=== PATIENT | female | born 1950 | race Hispanic/Latino ===

== ENCOUNTER 2018-05-02 22:43 | Emergency (ER) | payer MEDICARE, MEDICAID ==
[2018-05-02 22:52] VITALS: TEMP 98.2
--- NOTE | 2018-05-03 00:24 | ED PDOC ---
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 As per patient, was trying to drive to a wedding, and her GPS system malfunctioned while crossing over a bridge, and due to being in an unfamiliar area, she became very anxious. Reports sudden onset of dizziness, palpitations, and shortness of breath, so she pulled over. Adamantly denies chest pain. No syncope, near syncope, fevers , chills, diaphoresis, nausea, emesis, dysuria, hematuria. Since arriving in ED , symptoms have resolved. Seen ambulating well in ED, including when briefly leaving ED to get a blanket from her car and returning (originally thought to have eloped). Denies any other acute complaints, not actively short of breath or having palpitations, no chest pain. All other ROS in 12-system review negative. PMH: as above PSH: unsure about prior surgeries as patient anxious about topic of surgery when asked and said she doesn't want any surgeries Fam Hx: denies Soc Hx: denies tobacco, alcohol, illicits PMD: pt unable to remember PMD's name, work's at a "[employer]" in [place] (Chris Sykes) Past Medical History - Provider Review Nursing Documentation Reviewed: Yes - Psychiatric Hx Substance Use: No <Chris Sykes - Last Filed: 05/03/18 04:10> Family/Social History - Physician Review Nursing Documentation Reviewed: Yes Family/Social History: Unknown Family HX Smoking Status: Never Smoked Hx Alcohol Use: No Hx Substance Use: No <Chris Sykes - Last Filed: 05/03/18 04:10> Allergies/Home Meds <Dragan Carlisle - Last Filed: 05/03/18 01:49> <Chris Sykes - Last Filed: 05/03/18 04:10> Allergies/Adverse Reactions: Allergies Penicillins Allergy (Verified 05/02/18 22:52) RASH Home Medications: Home Meds Medication Instructions Recorded Confirmed Unobtainable 05/02/18 05/02/18 Review of Systems - Review of Systems Constitutional: Normal. absent: Fatigue, Fevers Eyes: Normal. absent: Vision Changes ENT: Normal. absent: Sore Throat, Rhinorrhea, Epistaxis Respiratory: SOB (now resolved). absent: Normal, Cough, Wheezing Cardiovascular: Palpitations. absent: Chest Pain, Syncope Gastrointestinal: Normal. absent: Abdominal Pain, Nausea, Vomiting Genitourinary Female: Normal. absent: Dysuria Neurological: Dizziness (now resolved). absent: Headache, Focal Weakness, Gait Changes (ambulated from parking to ED without issue and to and back from car without issue) Endocrine: absent: Diaphoresis Psychiatric: Anxiety (became acutely anxious when GPS malfunctioned in area she wasn't familiar with) <MonyChris - Last Filed: 05/03/18 04:10> Physical Exam <Dragan Carlisle - Last Filed: 05/03/18 01:49> Vital Signs Reviewed: Yes Temperature: Afebrile Blood Pressure: Normal Pulse: Regular Respiratory Rate: Normal Appearance: Positive for: Well-Appearing, Non-Toxic, Comfortable. No: Ill- Appearing Pain Distress: None Mental Status: Positive for: Alert and Oriented X 3 - Systems Exam Head: Present: Atraumatic, Normocephalic Pupils: No: Pinpoint Extroacular Muscles: Present: EOMI Conjunctiva: No: Injected, Icteric Mouth: Present: Moist Mucous Membranes, Normal Lips, Normal Tounge, Normal Teeth. No: Dry, Drooling Nose (External): Present: Atraumatic. No: Abrasion, Laceration Nose (Internal): Present: No Active Bleeding. No: Epistaxis Neck: Present: Normal Range of Motion, Trachea Midline, Other (posterior neck tenderness and tightness along bilateral trapezius muscle groups, pt reports present since 1 week prior 2/2 mechanical fall caught by passnegers on her train ). No: MIDLINE TENDERNESS, JVD Respiratory/Chest: Present: Clear to Auscultation, Good Air Exchange. No: Respiratory Distress, Accessory Muscle Use, Wheezes, Decreased Breath Sounds, Rales, Rhonchi, Tachypneic, Tender to Palpation Cardiovascular: Present: Regular Rate and Rhythm, Normal S1, S2, Peripheal Pulses Present (+2 radials and dorsalis pedis bilaterally). No: Murmurs, Irregular Rhythm, Tachycardic, Bradycardic Abdomen: Present: Normal Bowel Sounds. No: Tenderness, Distention, Guarding Upper Extremity: Present: Normal Inspection, Normal ROM, NORMAL PULSES. No: Cyanosis, Edema, Tenderness, Swelling, Erythema, Deformity Lower Extremity: Present: Normal Inspection, NORMAL PULSES, Normal ROM, Other ( moderate scattered varicose veins but none acutely tender to palpation). No: Edema, CALF TENDERNESS, Cyanosis, Tenderness, Swelling, Erythema, Deformity Neurological: Present: GCS=15, Speech Normal, Motor Func Grossly Intact, Normal Sensory Function, Gait Normal (ambulating in ED without issue) Skin: Present: Warm, Dry, Normal Color. No: Rashes, Diaphoretic, Pale Lymphatic: No: Cervical Adenopathy Psychiatric: Present: Alert, Oriented x 3, Normal Insight, Normal Concentration , Anxious <Chris Sykes - Last Filed: 05/03/18 04:10> Vital Signs Temp Pulse Resp Pulse Ox 05/02/18 22:49 98.2 F 73 19 97 Medical Decision Making <Dragan Carlisle - Last Filed: 05/03/18 01:49> Reassessment Condition: Re-examined (Symptoms had already resolved on arrival, no change on re-examination, symptoms remain resolved and no recurrence reported ) <Chris Sykes - Last Filed: 05/03/18 04:10> ED Course and Treatment: 05/03/18 01:48 67 year old female presents to the Emergency department complaining of heart palpitations. In agreement with resident note, which includes further HPI details. Patient was seen and evaluated with resident, came up with plan and treatment together. (Dragan Carlisle) 05/03/18 00:20 Ddx: Panic attack vs arrhythmia, r/o ACS As per ED staff, refusing labs. When asking patient why, she stated she just had labs 1 week ago. Explained need for new labs given acute event prompting her to present to ED, then allowed ED to draw blood CBC, CMP, Mg, Phos, Trop, and EKG ordered, f/u 05/03/18 04:03 Labs unremarkable, trop negative, NSR on EKG with normal intervals and segments , no ST elevations or depression appreciated Pt seen ambulating in ED, initially believed to have eloped, but then returned reporting that she only went to her car for a blanket because she was cold. Given ambulatory status without symptoms and unremarkable workup, will discharge to home. Patient to follow up with her PMD in 2-3 days. Expresses understanding and agreement with these instructions. Discharged to home. Patient seen, reviewed, and discussed with attending, [facility]isle. [facility] - Lab Interpretations Lab Results: 05/03/18 01:30 05/03/18 01:30 Lab Results 05/03/18 01:30: Sodium 141, Potassium 3.9, Chloride 106, Carbon Dioxide 22, Anion Gap 16, BUN 19, Creatinine 1.0, Est GFR ( Amer) > 60, Est GFR (Non- Af Amer) 55, Random Glucose 95, Calcium 8.9, Phosphorus 3.7, Magnesium 2.1, Total Bilirubin 0.4, AST 20, ALT 25, Alkaline Phosphatase 75, Troponin I < 0.01 , Total Protein 7.2, Albumin 4.0, Globulin 3.2, Albumin/Globulin Ratio 1.2 05/03/18 01:30: WBC 5.0, RBC 4.01, Hgb 12.2, Hct 34.7 L, MCV 86.5, MCH 30.4, MCHC 35.2, RDW 13.7, Plt Count 150, MPV 10.0, Gran % 46.0 L, Lymph % (Auto) 44.0 H, Ashe % (Auto) 7.6 H, Eos % (Auto) 2.0, Baso % (Auto) 0.4, Gran # 2.30, Lymph # (Auto) 2.2, Ashe # (Auto) 0.4, Eos # (Auto) 0.1, Baso # (Auto) 0.02 - PA / COUNTY AGENT / Resident Statement / has reviewed & agrees with the documentation as recorded. / has examined the patient and agrees with the treatment plan. - Scribe Statement The provider has reviewed the documentation as recorded by the Scribe <Dragan Carlisle - Last Filed: 05/03/18 01:49> <Chris Sykes - Last Filed: 05/03/18 04:10> - Scribe Statement Padminiingrid Sherlyn. All medical record entries made by the Scribe were at my direction and personally dictated by me. I have reviewed the chart and agree that the record accurately reflects my personal performance of the history, physical exam, medical decision making, and the department course for this patient. I have also personally directed, reviewed, and agree with the discharge instructions and disposition. (Dragan Carlisle) Disposition/Present on Arrival <Dragan Carlisle - Last Filed: 05/03/18 01:49> - Present on Arrival Any Indicators Present on Arrival: No History of DVT/PE: No History of Uncontrolled Diabetes: No Urinary Catheter: No History of Decub. Ulcer: No History Surgical Site Infection Following: None - Disposition Have Diagnosis and Disposition been Completed?: Yes Disposition Time: 04:10 Patient Plan: Discharge <Chris Sykes - Last Filed: 05/03/18 04:10> - Disposition Diagnosis: Anxiety, Palpitations, Panic attack as reaction to stress Disposition: HOME/ ROUTINE Patient Problems: Current Active Problems Problem Status Onset Anxiety Acute Palpitations Acute Panic attack as reaction to stress Acute Condition: FAIR Discharge Instructions (ExitCare): Anxiety, Adult (DC), Panic Disorder (DC), Palpitations (DC) Additional Instructions: NATANAEL HENDRIX, thank you for letting us take care of you today. Your providers were Dragan Carlisle MD and Chris Sykes DO, and you were treated for HEART PALPITATIONS. The emergency medical care you received today was directed at your acute symptoms. If you were prescribed any medication, please fill it and take as directed. It may take several days for your symptoms to resolve. Return to the Emergency Department if your symptoms worsen, do not improve, or if you have any other problems. Please follow up with your Primary Medical Doctor in [place] within 1 week. Please continue to take all home medications as previously prescribed. Bring any paperwork you were given at discharge with you along with any medications you are taking to your follow up visit. Our treatment cannot replace ongoing medical care by a primary care provider outside of the emergency department. [facility]. If you had an X-Ray or CT scan: A Radiologist will review the ED reading if any change in treatment is needed we will contact you. If you had a blood, urine, or wound culture: It will take several days for the results, if any change in treatment is needed we will contact you. If you had an STI test: It will take 48 hours for the results. Please call after 1 week if you have not heard back. Referrals: Non [facility] Provider, [Non-Staff] - Follow up with primary Forms: [facility] (Croatian)
[2018-05-03 02:41] LABS: BASO # 0.02 K/mm3 (0.0-2.0); BASO % 0.4 % (0.0-3.0); EOS # 0.1 (0.0-0.7); GRAN # 2.3 (1.4-6.5); HEMOGLOBIN 12.2 g/dL (12.0-16.0); LYMPH # 2.2 (1.2-3.4); MEAN CELL VOLUME 86.5 fl (80.0-105.0); MEAN CORPUSCULAR HEMOGLOBIN 30.4 pg (25.0-35.0); MEAN CORPUSCULAR HGB CONC 35.2 g/dl (31.0-37.0); MONO # 0.4 (0.1-0.6); MONO % 7.6 % (1.0-6.0); RBC 4.01 10^6/uL (3.5-6.1); RED CELL DISTRIBUTION WIDTH 13.7 % (11.5-14.5)
[2018-05-03 02:46] LABS: ALB/GLOB RATIO 1.2 (1.1-1.8); ALT/SGPT 25 U/L (7-56); AST/SGOT 20 U/L (14-36); BLOOD UREA NITROGEN 19 mg/dL (7-21); CALCIUM 8.9 mg/dL (8.4-10.5); GFR AFRICAN-AMERICAN > 60; GFR NON-AFRICAN AMERICAN 55
[2018-05-03 02:56] LABS: TROPONIN I < 0.01 ng/mL
[2018-05-03 05:35] VITALS: BP 124/63; PULSE 74; RESP 17; O2SAT 96
--- NOTE | 2018-05-06 13:50 | CARD ---
APPROVED REPORT EKG Measurement Heart [id number] <Conclusion> Normal sinus rhythm Low voltage QRS Borderline ECG
== END 2018-05-03 05:34 | disposition home or self-care (01) ==
LOC: ED 22:43
DX: F41.9 Anxiety disorder, unspecified (principal); R00.2 Palpitations; F43.0 Acute stress reaction; I10 Essential (primary) hypertension; E78.5 Hyperlipidemia, unspecified